=== PATIENT | female | born 1940 | race Caucasian/White ===

== ENCOUNTER 2016-03-05 06:08 | Inpatient (IN) | payer MEDICARE, BC ==
[~2016-03-05 06:08] MED LIST: ceFAZolin SODIUM 1 GM VIAL IV PRN
[2016-03-05] MEDS: RINGERS SOLUTION,LACTATED 1,000 ML IV PRN ×2 (06:32→07:40)
[2016-03-05] MEDS ORDERED: RINGERS SOLUTION,LACTATED 1,000 ML IV ONE (09:45)
[2016-03-05] MEDS ORDERED: oxyCODONE HCL/ACETAMINOPHEN 1 TAB TABLET PO PRN (10:05)
[2016-03-05] MEDS ORDERED: MORPHINE SULFATE 2 MG/ML DISP.SYRIN IV PRN (10:05)
[2016-03-05] MEDS ORDERED: ACETAMINOPHEN 500 MG TABLET PO PRN (10:05)
[2016-03-05] MEDS ORDERED: ONDANSETRON HCL/PF 2 MG/ML VIAL IV PRN (10:05)
[2016-03-05] MEDS ORDERED: PROMETHAZINE HCL 5 MG in DEXTROSE 5 % IN WATER 50 ML IV PRN ×2 (10:05)
[2016-03-05] MEDS ORDERED: DEXTROSE 5%-LACTATED RINGERS 1,000 ML IV PRN (10:05)
[2016-03-05] MEDS ORDERED: MAGNESIUM HYDROXIDE 30 ML UDC PO PRN (10:05)
--- NOTE | 2016-03-05 10:23 | OR ---
Operative Report - Dictated Report Narrative: Date: 03/05/2016 Physician: Jai Barron M.D. Orthopedic Assistant: Bal Triana PA-C Preoperative diagnosis: Right shoulder osteoarthritis Postoperative diagnosis: Right shoulder osteoarthritis with intact rotator cuff Procedure: Right anatomic total shoulder arthroplasty Anesthesia: General plus regional Complications: None Estimated blood loss: 150 mL Specimens: Humeral head Retained implants: [place] Global Unite 10 x 113 mm standard stem, Global unite anatomic proximal body 135 size 10, Global unite eccentric humeral head 40 x 18 mm, Global anchor peg glenoid size 40 mm Drains: None Indications: Joana Is a 75 year-old female who has been followed in my clinic with complaints of shoulder pain consistent with osteoarthritis. Physical exam and diagnostic imaging were consistent with his complaints and concern for osteoarthritis. Conservative measures have failed including, but not limited to , passage of time, activity modification, medications, physical therapy/home exercise program, or injections. The risks, benefits, and alternatives were discussed in clinic. The risks being , bleeding, infection, blood clots, nerve, tendon, ligament, blood vessel injury, loosening, dislocation, persistent pain, arthrosis, stiffness, need for prolonged therapy, need for additional procedures, and persistent symptoms. Consent was obtained in the clinic. Procedure: After marking the correct extremity in the preoperative holding area, a timeout was performed in the operating room. IV antibiotics consisting of 1 g of Ancef were administered prior to the procedure. A general followed by regional anesthetic was induced by the nurse farm tractor mechanic. This was in the supine position, then the patient was transitioned to a beachchair position with all bony prominences well-padded, head in neutral, the nonoperative arm well supported, and the legs padded with SCDs in place. The operative shoulder was then prepped and draped in a standard sterile fashion. The operative extremity was then placed in a Spyder arm solis. After marking out the bony landmarks, a standard deltopectoral incision and approach was made to the shoulder. A combination of electrocautery and blunt dissection was carried down to the level of the deltopectoral fascia and the interval between the deltoid and pectoralis major was identified and developed using a combination of blunt finger dissection and tenotomy scissors. The cephalic vein was identified and retracted medially with the pectoralis major. The deltoid was retracted laterally. The conjoint tendon was identified as well as the lesser tuberosity and bicipital groove. The subscapularis was then released from its attachment on the lesser tuberosity leaving a good cuff of tissue for repair at the end of the case. The subscapularis tendon was tagged and retracted medially. The glenohumeral joint was then dislocated with a combination of external rotation and adduction, bringing the humeral head up and out of the wound. The supraspinatus and its insertion were inspected and found to be intact with some noted tendinopathy but no significant tearing. At this point we elected to proceed with anatomic total shoulder arthroplasty. The entry reamer was advanced into the humeral shaft using a starting point centered over the humeral shaft just medial to the rotator cuff insertion. Sequential reaming by hand was performed up to a size 11 reamer. This was left in place and a humeral head cutting jig was then attached to the reamer stem. Our jig was appropriately positioned and placed at 30 of retroversion. It was noted that the patient had a large amount of natural retroversion probably closer to 40. The humeral head resection was then performed with an oscillating saw being sure to protect our rotator cuff insertion. A humeral cap was then placed over the cut surface of the proximal humerus to protect it during retraction. Using posterior and anterior glenoid retractors the humeral head was retracted posteriorly and inferiorly exposing our glenoid. We identified her previous large bony [place] lesion anteriorly and inferiorly which had healed back in. This was removed using a curved osteotome and a rongeur. Any remaining labrum was also debrided from the glenoid. The 40 mm glenoid guide was then placed in appropriate position. We then advanced our guide pin into the center of the [place] glenoid, placing it in slight retroversion to compensate for the previous Bank[place] injury. Once we were happy with the position of the guidepin the 40 mm glenoid reamer was advanced over the guidepin and the glenoid was reamed to remove any remaining cartilage. Any excess bone and soft tissue around the rim was then debrided with a rongeur. We then placed the central drill over the guidepin and drilled the hole for our central peg. The guidepin was then removed and the peripheral drill guide was placed and all 3 peripheral holes were drilled placing one hole superiorly and 2 holes inferiorly. The guide was then removed and the glenoid was irrigated and then dried using a Ray- Severiano sponge. The cement was then mixed and placed into the peripheral drill holes. A 40mm glenoid component was then impacted into place and all excess cement was removed using a freer elevator. Once the cement had hardened, we turned our attention back to the proximal humerus. A size 10 broach was impacted into place in 30 of retroversion and was noted to have good axial and rotational stability. A trial humeral stem was then placed along with a 40 mm x 18 mm trial head with the eccentricity placed postero-superiorly to match the [place] anatomy. The joint was reduced and taken through a full range of motion and was manipulated posteriorly and anteriorly and found to have less than half a humeral head width of subluxation posteriorly. The subscap tendon was brought back over and found to be relatively tension-free out to at least 30 of external rotation. We were happy with these implants and all trial components were removed. The proximal humerus was then irrigated and the final humeral component was assembled on the back table with the 40 x 18 mm humeral head impacted with the appropriate eccentricity. Final humeral component was impacted into place and the glenohumeral joint was reduced. We again checked the stability and range of motion of the final implants and were happy. The wound was then copiously irrigated with normal saline and we turned our attention to repairing the subscapularis tendon. This was repaired using interrupted #1 Vicryl sutures. After repair the shoulder was taken through a gentle range of motion and we were able to obtain about 40 of external rotation before putting significant tension on our repair. We then closed the wound in a layered fashion. A running 0 Vicryl was used to close the deltopectoral fascia. 3-0 Vicryl was placed in an interrupted deep dermal fashion followed by 4-0 nylon in an interrupted horizontal mattress fashion to close the skin. Dressings consisting of Xeroform, 4 x 4, ABD, and tape were applied. The patient was placed in a shoulder immobilizer. All sponge, needle, blade, and instrument counts were correct prior to closing the wounds. The patient was awoken and transferred to the postanesthesia care unit in stable condition.
[2016-03-05] MEDS: ceFAZolin SODIUM 1 GM in DEXTROSE 5 % IN WATER 100 ML IV SCH ×4 (14:02→20:14)
[2016-03-05] MEDS: MAG HYDROX/ALUMINUM HYD/SIMETH 30 ML UDC PO PRN (15:58)
[2016-03-05] MEDS ORDERED: ACETAMINOPHEN 325 MG TABLET PO PRN (19:59)
[2016-03-05] MEDS: ASPIRIN 81 MG TABLET.DR PO SCH (20:14)
[2016-03-05] MEDS ORDERED: FUROSEMIDE 40 MG TABLET PO SCH (20:15)
[2016-03-05] MEDS ORDERED: LISINOPRIL 10 MG TABLET ONE (20:38)
[2016-03-05] MEDS: LISINOPRIL 40 MG TABLET PO SCH (20:39)
[2016-03-05] MEDS: SENNOSIDES/DOCUSATE SODIUM 1 TAB TABLET PO SCH (20:46)
[2016-03-05] MEDS: MIRTAZAPINE 15 MG TABLET PO SCH (20:47)
[2016-03-05] MEDS: FLUTICASONE PROPIONATE 120 SPRAY INHALER NS SCH (20:47)
[2016-03-05] MEDS: oxyCODONE HCL/ACETAMINOPHEN 1 TAB TABLET PO PRN (21:04)
[2016-03-06] MEDS: ceFAZolin SODIUM 1 GM in DEXTROSE 5 % IN WATER 100 ML IV SCH ×2 (01:52)
[2016-03-06] MEDS: MAG HYDROX/ALUMINUM HYD/SIMETH 30 ML UDC PO PRN (01:54)
[2016-03-06] MEDS ORDERED: PHENOL 180 SPRAY BTL MM PRN (05:06)
[2016-03-06] MEDS: oxyCODONE HCL/ACETAMINOPHEN 1 TAB TABLET PO PRN ×3 (05:24→23:46)
[2016-03-06 05:42] LABS: Hematocrit 29.7 % (37.0-47.0); Hemoglobin 9.5 gm/dL (12.5-16.0); Mean Corpuscular Hemoglobin 29.4 pg (27-31); Mean Platelet Volume 9.6 fl (6.0-9.5); Platelet Count 358 K/mm3 (150-450); Red Blood Count 3.23 M/mm3 (4.2-5.4); Red Cell Distribution Width 12.7 % (11.5-14.0); White Blood Count 11.7 K/mm3 (4.0-10.5)
[2016-03-06 05:48] LABS: Anion Gap 16.7 mmol/L (6.8-13.8); Calcium * 9.1 mg/dL (7.9-10.9); Carbon Dioxide 27.3 mmol/L (24-32.6); Estimated Creat Clear 16.7
[2016-03-06] MEDS ORDERED: NORMAL SALINE 1,000 ML IV ONE (08:44)
--- NOTE | 2016-03-06 09:40 | PN ---
Subjective - Date and Time Seen Date: 03/06/16 Subjective Narrative: Patient doing well this am. No events overnight. Pain controlled this am. Objective - Vitals Vitals: Last Vital Signs Temp 36.9 C 03/06/16 06:28 Pulse 84 03/06/16 06:28 Resp 18 03/06/16 06:28 BP 170/76 03/06/16 06:28 Pulse Ox 95 03/06/16 06:28 - Abnormal Lab Findings Abnormal Lab Findings: Abnormal Lab Results 03/06/16 03/06/16 Range/Units 05:23 05:23 WBC 11.7 H (4.0-10.5) K/mm3 RBC 3.23 L (4.2-5.4) M/mm3 Hgb 9.5 L (12.5-16.0) gm/dL Hct 29.7 L (37.0-47.0) % MPV 9.6 H (6.0-9.5) fl Potassium 5.0 H (3.4-4.6) mmol/L Anion Gap 16.7 H (6.8-13.8) mmol/L BUN 41 H (3-23) mg/dL Creatinine 2.16 H D (0.4-1.4) mg/dL Est GFR (Non-Af Amer) 24 L D (60-130) mL/min Random Glucose 138 H (70-110) mg/dL - Exam Exam Narrative: Gen: A&O x4, NAD Resp: breathing nonlabored MSK: RUE--> immobilizer in place, dressings c/d/i, 5/5 motor function in AIN/PIN /ulnar nerve distributions, SILT, cap refill brisk Assessment/Plan Plan Narrative: 75 yo F s/p R anatomic TSA, POD #1. - NWB RUE, immobilizer at all times except for hygeine and gentle pendulum exercises - reg diet - oral pain meds - PT/OT - DVT ppx: aspirin BID/teds - dispo: plan for d/c home with tomorrow
[2016-03-06] MEDS: amLODIPine BESYLATE 10 MG TABLET PO SCH (09:44)
[2016-03-06] MEDS: ASPIRIN 81 MG TABLET.DR PO SCH ×2 (09:44→20:55)
[2016-03-06] MEDS: CALCIUM CARBONATE/VITAMIN D3 1 TAB TABLET PO SCH (09:44)
[2016-03-06] MEDS: CYANOCOBALAMIN 1,000 MCG TABLET PO SCH (09:44)
[2016-03-06] MEDS: FLUTICASONE PROPIONATE 120 SPRAY INHALER NS SCH ×2 (09:45→20:55)
[2016-03-06] MEDS: LISINOPRIL 40 MG TABLET PO SCH ×2 (09:45→20:54)
[2016-03-06] MEDS: CHOLECALCIFEROL 1,000 UNIT CAPSULE PO SCH (09:45)
[2016-03-06] MEDS: MIRTAZAPINE 15 MG TABLET PO SCH (20:54)
[2016-03-06] MEDS: SENNOSIDES/DOCUSATE SODIUM 1 TAB TABLET PO SCH (20:54)
--- NOTE | 2016-03-06 23:17 | PN ---
Subjective - Date and Time Seen Date: 03/06/16 Time: 14:30 Subjective Narrative: Joana reports doing well. Has no concerns at this time. Denies fever, chills, nausea, or vomiting. She reports her pain is controlled. Objective - Vitals Vitals: Last Vital Signs Temp 36.8 C 03/06/16 18:51 Pulse 82 03/06/16 20:54 Resp 16 03/06/16 18:51 BP 149/64 03/06/16 20:54 Pulse Ox 97 03/06/16 18:51 - Abnormal Lab Findings Abnormal Lab Findings: Abnormal Lab Results 03/06/16 03/06/16 Range/Units 05:23 05:23 WBC 11.7 H (4.0-10.5) K/mm3 RBC 3.23 L (4.2-5.4) M/mm3 Hgb 9.5 L (12.5-16.0) gm/dL Hct 29.7 L (37.0-47.0) % MPV 9.6 H (6.0-9.5) fl Potassium 5.0 H (3.4-4.6) mmol/L Anion Gap 16.7 H (6.8-13.8) mmol/L BUN 41 H (3-23) mg/dL Creatinine 2.16 H D (0.4-1.4) mg/dL Est GFR (Non-Af Amer) 24 L D (60-130) mL/min Random Glucose 138 H (70-110) mg/dL - Exam Constitutional: Present: Alert, Oriented x3, Cooperative Respiratory: Present: lungs clear, normal breath sounds Cardiovascular/Chest: Present: regular rate, rhythm, no murmur Assessment/Plan - Problems/Diagnosis (1) Status post total shoulder arthroplasty Problem: Acute Qualifiers: Laterality: right Qualified Code(s): Z96.611 - Presence of right artificial shoulder joint Narrative: Doing well per ortho's standpoint. Anticipate discharge tomorrow. (2) CKD (chronic kidney disease) stage 3, GFR 30-59 ml/min Problem: Acute Narrative: Slightly worsened from baseline, suspect prerenal. Recommend continuing IVF as currently running. Recheck BMP in AM. (3) Hyperkalemia Problem: Acute Narrative: Potassium of 5.0. Continue IVF. Recheck potassium in AM, expect this to correct with current IVFs.
[2016-03-07 05:26] LABS: Hemoglobin 8.3 gm/dL (12.5-16.0); Mean Cell Volume 93.5 fl (78-100); Mean Corpuscular Hemoglobin 29.9 pg (27-31); Mean Corpuscular Hgb Conc 31.9 g/dl (32-36); Mean Platelet Volume 9.1 fl (6.0-9.5); Platelet Count 256 K/mm3 (150-450); Red Blood Count 2.78 M/mm3 (4.2-5.4); Red Cell Distribution Width 13.1 % (11.5-14.0); White Blood Count 6.7 K/mm3 (4.0-10.5)
[2016-03-07 05:38] LABS: Anion Gap 12.2 mmol/L (6.8-13.8); BUN/Creatinine Ratio 18.8 (9.0-21.6); Calcium * 8.7 mg/dL (7.9-10.9); Carbon Dioxide 27.1 mmol/L (24-32.6); Estimated Creat Clear 21.9; Potassium 5.3 mmol/L (3.4-4.6)
--- NOTE | 2016-03-07 08:43 | PN ---
Subjective - Date and Time Seen Date: 03/07/16 Subjective Narrative: No events overnight. Pain well controlled, patient ready for discharge. Objective - Vitals Vitals: Last Vital Signs Temp 36.6 C 03/07/16 07:48 Pulse 69 03/07/16 07:48 Resp 18 03/07/16 07:48 BP 141/57 03/07/16 07:48 Pulse Ox 96 03/07/16 07:48 - Abnormal Lab Findings Abnormal Lab Findings: Abnormal Lab Results 03/07/16 03/07/16 Range/Units 05:22 05:22 RBC 2.78 L (4.2-5.4) M/mm3 Hgb 8.3 L (12.5-16.0) gm/dL Hct 26.0 L (37.0-47.0) % MCHC 31.9 L (32-36) g/dl Potassium 5.3 H (3.4-4.6) mmol/L BUN 31 H (3-23) mg/dL Creatinine 1.65 H D (0.4-1.4) mg/dL Est GFR (Non-Af Amer) 32 L D (60-130) mL/min - Exam Exam Narrative: Gen: A&O x4, NAD Resp: breathing nonlabored MSK: RUE--> incision c/d/i, no drainage or erythema, 5/5 AIN/PIN/ulnar nerve motor function distally, SILT, cap refill brisk Assessment/Plan Plan Narrative: 75 yo F s/p R anatomic TSA, POD #2. - NWB RUE, immobilizer at all times - reg diet - oral pain meds - PT/OT - dispo: home today with home health
[2016-03-07] MEDS: FLUTICASONE PROPIONATE 120 SPRAY INHALER NS SCH (09:14)
[2016-03-07] MEDS: CALCIUM CARBONATE/VITAMIN D3 1 TAB TABLET PO SCH (09:14)
[2016-03-07] MEDS: ASPIRIN 81 MG TABLET.DR PO SCH (09:14)
[2016-03-07] MEDS: CHOLECALCIFEROL 1,000 UNIT CAPSULE PO SCH (09:15)
[2016-03-07] MEDS: LISINOPRIL 40 MG TABLET PO SCH (09:15)
[2016-03-07] MEDS: CYANOCOBALAMIN 1,000 MCG TABLET PO SCH (09:15)
[2016-03-07] MEDS: amLODIPine BESYLATE 10 MG TABLET PO SCH (09:15)
[2016-03-07 10:22] VITALS: BP 146/62
[2016-03-07] MEDS: MAG HYDROX/ALUMINUM HYD/SIMETH 30 ML UDC PO PRN (11:26)
--- NOTE | 2016-03-12 18:14 | DS ---
(1) Shoulder arthritis Problem: Chronic (2) Status post total shoulder arthroplasty Problem: Acute Qualifiers: Laterality: right Qualified Code(s): Z96.611 - Presence of right artificial shoulder joint Description of Stay: The patient was taken to the operating room on 03/05/2016 for right anatomic total shoulder arthroplasty. The patient tolerated the procedure well and there were no complications. She was admitted to the floor postoperatively where she remained stable. Labs and vitals were followed during her inpatient stay and were stable. Pain was controlled with oral pain medications. The patient resumed a regular diet as well as normal bladder and bowel function. PT and OT work consult and the patient maintained Hernandez. She was deemed stable for discharge home with home health on 03/06/2016. Procedures Performed: see notes below List Procedures: Right anatomic total shoulder arthroplasty. - 03/05/16 Discharge Disposition: Home self care - Home health Disposition: Home self-care Condition: Good Discharge Activity: Non-Weight bearing - shoulder immobilizer at all times Discharge Diet: General/regular food Referrals: Filipe Han DO [Primary Care Provider] - Problem Oriented Discharge Instructions to Patient/Family: Shoulder Joint Replacement, Care After Additional Patient Instructions (free text): [facility]. Please fax orders, face to face, d/c summary upon discharge. Follow up with Ortho is 2-3-17 @ 10am. Ortho Instructions: 1. Immobilizer at all times except for gentle pendulum exercises, may come out for full ROM of elbow, wrist, and hand. 2. Change dressing every 2-3 days with dry gauze and tegaderm. 3. Keep wound completely dry, sponge baths only. 4. Call for any wound drainage, erythema, fever/chills, or any general decline in condition. Prescriptions (Any new or edited meds): Aspirin [Aspirin Enteric Coated] 81 mg PO BID #60 tablet.dr Solimannoverena/Docusate Sodium [Senokot-S] 2 tab PO HS #40 tablet oxyCODONE HCL/ACETAMINOPHEN [Percocet 5 MG/325 MG] 1 - 2 tab PO Q6H PRN #60 tablet PRN Reason: Moderate Pain Complete Home Medications List: Complete Home Medication List: Cyanocobalamin [Vitamin B-12] 1,000 mcg PO DAILY 07/28/14 Lisinopril [Zestril] 40 mg PO BID 07/28/14 Acetaminophen [Tylenol] 325 mg PO Q4H PRN 08/01/15 Calcium Carbonate/Vitamin D3 [Calcium 600-Vit D3 800 Tablet] 1 each PO DAILY Cholecalciferol [Vitamin D] 1,000 unit PO DAILY 02/14/16 Fluticasone Propionate [Flonase] 1 spray NS BID 02/14/16 Mirtazapine [Remeron] 15 mg PO HS 02/14/16 amLODIPine BESYLATE [Norvasc] 10 mg PO DAILY 02/14/16 Aspirin [Aspirin Enteric Coated] 81 mg PO BID #60 tablet. 03/07/16 Sennosides/Docusate Sodium [Senokot-S] 2 tab PO HS #40 tablet 03/07/16 oxyCODONE HCL/ACETAMINOPHEN [Percocet 5 MG/325 MG] 1 - 2 tab PO Q6H PRN #60 tablet 03/07/16 Amb Orders for Discharge: PT Evaluation and Treatment Facility: [facility], Location: Rehabilitation Services
== END 2016-03-07 12:00 | disposition home health service (06) | DRG 483 ==
LOC: MS 06:08
PROVIDERS: ADMIT Orthopaedic Surgery; ATTEND Orthopaedic Surgery
PROC: 0RRJ0JZ Replacement of Right Shoulder Joint with Synthetic Substitute, Open Approach (ICD-10-PCS; principal; 2016-03-05 08:00)
DX: M19.011 Primary osteoarthritis, right shoulder (principal); E78.5 Hyperlipidemia, unspecified; I12.9 Hypertensive chronic kidney disease with stage 1 through stage 4 chronic kidney disease, or unspecified chronic kidney disease; N18.3 Chronic kidney disease, stage 3 (moderate); E87.5 Hyperkalemia